=== PATIENT | female | born 1965 | race Caucasian/White ===

== ENCOUNTER → 2017-01-09 | Outpatient (CLI) | payer MEDICAID ==
[~2017-01-09] MED LIST: ATORVASTATIN CA40 MG PO; B/P PILL PO; BUSPAR 10MG TAB10 MG PO; CARVEDILOL 1212.5 MG PO; CIPRO 250MG TA250 MG PO; LANTUS INS100 UNITS/ SC; LOVASTATIN20 MG PO; LOW DOSE ASPIRI81 MG PO; MEDROL 4MG. DOSE4 MG PO; METFORMIN 500M500 MG PO; METFORMIN1000 MG PO; SLEEPING PILL PO; ZITHROMAX Z PA250 MG PO
--- NOTE | 2017-01-11 08:07 | RADIOLOGY REPORT PS360 ---
DIG MAMM-SCREEN RENEE W/CAD CAD Screening COMPARISON: Digital mammograms 12/21/2015 and 03/08/2014 INDICATION: There is no personal or family history of breast cancer TECHNIQUE: Standard CC and MLO images were obtained. R2 CAD reviewed. FINDINGS: The breasts are composed primarily of fat with scattered fibroglandular densities throughout each breast. There are couple benign-appearing calcifications in each breast. There is no new or suspicious lesion in either breast and no suspicious microcalcifications. IMPRESSION: Fatty type breast parenchyma with no suspicious lesion seen recommend yearly follow-up BI-RADS CATEGORY: 2_Benign RECOMMENDED FOLLOWUP: 12M 12 MONTH FOLLOW-UP (A letter has been sent to the patient regarding results of the study.)
== END ==
LOC: RAD 08:30
DX: Z12.31 Encounter for screening mammogram for malignant neoplasm of breast (principal)
CPT/HCPCS: G0202